=== PATIENT | female | born 1950 | race Caucasian/White ===

== ENCOUNTER 2016-09-28 15:07 | Emergency (ER) | payer MEDICARE, OTHER ==
[~2016-09-28 15:07] MED LIST: ECO81 PO; HYD25 PO; MOT600 PO; NOR10 PO; NOR5 PO; PAX20 PO; PRI20 PO; TEN50 PO
[2016-09-28 15:43] LABS: UA SPECIFIC GRAVITY 1.025 (1.005-1.035); microscopic required? YES; urine erythrocyte NEGATIVE (NEGATIVE)
[2016-09-28 15:47] LABS: BASOPHIL % 0.8 % (0-2); PLATELET COUNT 167 x10^3mcL (130-400); RED CELL DISTRIBUTION WIDTH 13.4 % (11.5-14.5)
[2016-09-28 16:04] LABS: ALBUMIN 3.6 g/dL (3.4-5.0); ALKALINE PHOSPHATASE 112 U/L (46-116); ALT/SGPT 38 U/L (14-59); AST/SGOT 31 U/L (15-37); BILIRUBIN TOTAL 0.4 mg/dL (0.20-1.00); CARBON DIOXIDE 29.2 mmol/L (21-32); CHLORIDE SERUM 104 mmol/L (98-107); CREATININE SERUM 0.7 mg/dL (0.6-1.0); GFR1 > 60 mL/min; GLUCOSE SERUM 89 mg/dL (74-106); LIPASE 160 IU/L (73-393); POTASSIUM SERUM 3.9 mmol/L (3.5-5.1); SODIUM SERUM 140 mmol/L (136-145); TOTAL PROTEIN, SERUM 7.4 g/dL (6.4-8.2)
[2016-09-28 16:12] LABS: CALCIUM 8.5 mg/dL (8.5-10.1)
[2016-09-28 17:42] VITALS: BP 141/61
== END 2016-09-28 18:20 | disposition home or self-care (01) ==
LOC: ED 15:07
PROVIDERS: Emergency Medicine
DX: E86.0 Dehydration (principal); M79.1 Myalgia; I10 Essential (primary) hypertension; E11.9 Type 2 diabetes mellitus without complications; Z79.899 Other long term (current) drug therapy; Z79.84 Long term (current) use of oral hypoglycemic drugs; Z88.2 Allergy status to sulfonamides; Z86.79 Personal history of other diseases of the circulatory system

== ENCOUNTER 2017-06-09 13:22 | Emergency (ER) | payer MEDICARE, OTHER ==
[~2017-06-09] VITALS: Ht 167.6 cm; Wt 105.2 kg
[2017-06-09 13:33] VITALS: Ht 167.6 cm; Wt 105.2 kg
[2017-06-09 15:29] VITALS: BP 143/73
== END 2017-06-09 15:29 | disposition home or self-care (01) ==
LOC: ED 13:22
DX: N39.0 Urinary tract infection, site not specified (principal); I10 Essential (primary) hypertension; E11.9 Type 2 diabetes mellitus without complications; Z88.2 Allergy status to sulfonamides
CPT/HCPCS: J0696

== ENCOUNTER 2017-06-18 03:20 | Emergency (ER) | payer MEDICARE, OTHER ==
[~2017-06-18] VITALS: Ht 167.6 cm; Wt 108.0 kg
[2017-06-18 03:23] VITALS: Ht 167.6 cm; Wt 108.0 kg
[2017-06-18 06:08] VITALS: BP 134/68
== END 2017-06-18 06:08 | disposition home or self-care (01) ==
LOC: ED 03:20
DX: T78.1XXA Other adverse food reactions, not elsewhere classified, initial encounter (principal); I10 Essential (primary) hypertension; E11.9 Type 2 diabetes mellitus without complications; Z88.2 Allergy status to sulfonamides; X58.XXXA Exposure to other specified factors, initial encounter
CPT/HCPCS: J0171; J1200; J2930

== ENCOUNTER 2017-06-20 14:13 | Emergency (ER) | payer MEDICARE, OTHER ==
[~2017-06-20] VITALS: Ht 167.6 cm; Wt 102.0 kg
[2017-06-20 14:27] VITALS: Ht 167.6 cm; Wt 102.0 kg
[2017-06-20 17:53] VITALS: BP 139/84
== END 2017-06-20 17:53 | disposition home or self-care (01) ==
LOC: ED 14:13
DX: L50.9 Urticaria, unspecified (principal); I10 Essential (primary) hypertension; E11.9 Type 2 diabetes mellitus without complications; Z88.2 Allergy status to sulfonamides
CPT/HCPCS: J0696; J1100; J1200

== ENCOUNTER 2018-06-20 08:58 | Day surgery (SDC) | payer MEDICARE, OTHER ==
[~2018-06-20] VITALS: Ht 165.1 cm; Wt 99.8 kg
[~2018-06-20 08:58] MED LIST changes: +AMLODIPINE BESYL5 M2 PO; +ASPIR 8181 MG PO; +ATORVASTATIN CA40 M1 PO; +COLACE100 MG PO; +HYDROCHLOROTHIA25 MG PO; +METFORMIN HYDR500 M1 PO; +PAROXETINE HCL20 M1 PO; +TOPROL XL25 MG PO
[2018-06-20 10:08] VITALS: BP 142/77
[2018-06-20 12:54] VITALS: BP 126/79
== END 2018-06-20 12:30 | disposition home or self-care (01) ==
LOC: GI 08:58 → OR 11:30 → GI 11:30
PROVIDERS: Internal Medicine
PROC: 0DBL8ZZ Excision of Transverse Colon, Via Natural or Artificial Opening Endoscopic (ICD-10-PCS; 2018-06-20)
PROC: 0DB48ZX Excision of Esophagogastric Junction, Via Natural or Artificial Opening Endoscopic, Diagnostic (ICD-10-PCS; principal; 2018-06-20 11:30)
PROC: 0DB68ZX Excision of Stomach, Via Natural or Artificial Opening Endoscopic, Diagnostic (ICD-10-PCS; 2018-06-20 11:30)
PROC: 0DBN8ZZ Excision of Sigmoid Colon, Via Natural or Artificial Opening Endoscopic (ICD-10-PCS; 2018-06-20 11:30)
DX: D12.3 Benign neoplasm of transverse colon (principal); D12.5 Benign neoplasm of sigmoid colon; K29.70 Gastritis, unspecified, without bleeding; K20.8 Other esophagitis; I10 Essential (primary) hypertension; E78.5 Hyperlipidemia, unspecified; R73.03 Prediabetes; E66.9 Obesity, unspecified; Z82.49 Family history of ischemic heart disease and other diseases of the circulatory system; Z83.3 Family history of diabetes mellitus; Z80.1 Family history of malignant neoplasm of trachea, bronchus and lung; Z98.51 Tubal ligation status; Z90.721 Acquired absence of ovaries, unilateral; Z88.2 Allergy status to sulfonamides
CPT/HCPCS: 43239; 45380; J1200; J1610; J2175; J2250; J2310; J3010; J3490

== ENCOUNTER 2018-12-19 18:54 | Emergency (ER) | payer MEDICARE, OTHER ==
[~2018-12-19] VITALS: Ht 170.2 cm; Wt 102.5 kg
[2018-12-19 19:05] VITALS: Ht 170.2 cm; Wt 102.5 kg
[2018-12-19 20:00] LABS: PLATELET COUNT 328 x10^3mcL (130-400); RED CELL DISTRIBUTION WIDTH 13.8 % (11.5-14.5)
[2018-12-19 20:01] LABS: BASOPHIL % 0 % (0-2)
[2018-12-19 20:09] LABS: CALCIUM 9.2 mg/dL (8.5-10.1); CARBON DIOXIDE 32.9 mmol/L (21-32); CHLORIDE SERUM 101 mmol/L (98-107); CREATININE SERUM 0.9 mg/dL (0.6-1.0); GFR1 > 60 mL/min; GLUCOSE SERUM 131 mg/dL (74-106); POTASSIUM SERUM 4.2 mmol/L (3.5-5.1); SODIUM SERUM 140 mmol/L (136-145)
[2018-12-19 20:14] LABS: ALBUMIN 3.5 g/dL (3.4-5.0); ALKALINE PHOSPHATASE 120 U/L (46-116); ALT/SGPT 27 U/L (14-59); AST/SGOT 22 U/L (15-37); BILIRUBIN TOTAL 0.7 mg/dL (0.20-1.00); TOTAL PROTEIN, SERUM 7.3 g/dL (6.4-8.2)
[2018-12-19 23:29] VITALS: BP 115/61
== END 2018-12-19 23:29 | disposition home or self-care (01) ==
LOC: ED 18:54
PROVIDERS: Emergency Medicine
DX: R13.10 Dysphagia, unspecified (principal); E86.0 Dehydration; I10 Essential (primary) hypertension; E11.9 Type 2 diabetes mellitus without complications; Z88.2 Allergy status to sulfonamides; Z91.040 Latex allergy status
CPT/HCPCS: 82962; J7030

== ENCOUNTER 2019-04-17 04:36 | Emergency (ER) | payer MEDICARE, OTHER ==
[~2019-04-17] VITALS: Ht 167.6 cm; Wt 104.3 kg
[2019-04-17 04:47] VITALS: Ht 167.6 cm; Wt 104.3 kg
[2019-04-17 08:07] VITALS: BP 142/81
== END 2019-04-17 08:07 | disposition home or self-care (01) ==
LOC: ED 04:36
DX: L25.8 Unspecified contact dermatitis due to other agents (principal); T36.95XA Adverse effect of unspecified systemic antibiotic, initial encounter; I10 Essential (primary) hypertension; E11.9 Type 2 diabetes mellitus without complications; Z88.2 Allergy status to sulfonamides; Z91.048 Other nonmedicinal substance allergy status; Y92.89 Other specified places as the place of occurrence of the external cause
CPT/HCPCS: J2930; J3490